=== PATIENT | female | born 1940 | race Caucasian/White ===

== ENCOUNTER → 2017-07-28 11:43 | Outpatient (CLI) | payer MEDICARE, OTHER, SELFPAY ==
--- NOTE | 2017-07-28 11:46 | BI_ITS ---
MAMMOGRAPHY - BILATERAL SCREENING REASON FOR EXAM: Female, 76 years old. Routine annual screening examination. PERTINENT HISTORY: Non-contributory. TECHNIQUE: Digital bilateral breast juan (3D mammographic acquisition) in the CC and MLO projections. 2-D mediolateral oblique (MLO) and craniocaudad (CC) views of both breasts were obtained. CAD: Full Field Digital Mammography with Computer Added Detection was performed. COMPARISON: Comparison is made with prior study dated July 01, 2016 and June 25, 2015. FINDINGS: Breast Composition: The breasts are heterogeneously dense, which may obscure small masses. There are no dominant masses or suspicious calcifications. No other significant abnormalities are identified. There has been no significant change since the prior study. BI/SCREENING MAMM (CAD), BILAT IMPRESSION: Stable bilateral screening mammogram. Yearly follow-up mammogram recommended. (A) ASSESSMENT CATEGORY: BIRADS Category 1: Negative. A letter regarding these results will be sent to the patient by the facility within 30 days. Approximately 10% of breast cancers are not detected by mammography. A normal mammogram should not delay biopsy of a clinically suspicious abnormality. [id number] Electronically Signed: Senthil Wu MD at 14:17 EDT Tel [phone], Service support ,
== END ==
PROVIDERS: Family Provider Student in an Organized Health Care Education/Training Program; PCP Student in an Organized Health Care Education/Training Program; Visit Provider Student in an Organized Health Care Education/Training Program
DX: Z12.31 Encounter for screening mammogram for malignant neoplasm of breast (principal)
CPT/HCPCS: 77063; 77067

== ENCOUNTER → 2018-07-30 12:11 | Outpatient (CLI) | payer MEDICARE, OTHER, SELFPAY ==
--- NOTE | 2018-07-30 12:20 | BI_ITS ---
MAMMOGRAPHY - BILATERAL SCREENING REASON FOR EXAM: Female, 77 years old. Routine annual screening examination. PERTINENT HISTORY: Non-contributory. TECHNIQUE: Digital bilateral breast juan (3D mammographic acquisition) in the CC and MLO projections. 2-D mediolateral oblique (MLO) and craniocaudad (CC) views of both breasts were obtained. CAD: Full Field Digital Mammography with Computer Added Detection was performed. COMPARISON: Comparison is made with prior study dated July 28, 2017 and July 01, 2016. FINDINGS: Breast Composition: The breasts are extremely dense, which lowers the sensitivity of mammography. There are no dominant masses or suspicious calcifications. No other significant abnormalities are identified. There has been no significant change since the prior study. BI/SCREENING MAMM (CAD), BILAT IMPRESSION: Stable bilateral screening mammogram. Yearly follow-up mammogram recommended. (A) ASSESSMENT CATEGORY: BIRADS Category 1: Negative. A letter regarding these results will be sent to the patient by the facility within 30 days. Approximately 10% of breast cancers are not detected by mammography. A normal mammogram should not delay biopsy of a clinically suspicious abnormality. [id number] Electronically Signed: Senthil Wu, at 15:21 EDT , Service support ,
== END ==
PROVIDERS: Family Provider Student in an Organized Health Care Education/Training Program; PCP Student in an Organized Health Care Education/Training Program; Referring Provider Obstetrics & Gynecology; Visit Provider Obstetrics & Gynecology
DX: Z12.31 Encounter for screening mammogram for malignant neoplasm of breast (principal)
CPT/HCPCS: 77063; 77067

== ENCOUNTER → 2020-10-09 12:06 | Outpatient (CLI) | payer MEDICARE, OTHER, SELFPAY ==
--- NOTE | 2020-10-09 12:08 | BI_ITS ---
MAMMOGRAPHY - BILATERAL SCREENING 3-D TOMOSYNTHESIS REASON FOR EXAM: Female, 79 years old. SCREENING PERTINENT HISTORY: No significant family history. TECHNIQUE: 2-D mammograms and 3-D Tomosynthesis of the breast (s) were performed. CAD was performed. COMPARISON: 07/30/2018 FINDINGS: The breast composition is extremely dense fibroglandular tissue that may lower the sensitivity of the mammography There is 1.4 cm spiculated suspected lesion seen in the upper aspect of the right breast on the mediolateral oblique view not identified well on the CC view for which ultrasound is indicated. This is not seen in the previous study. Otherwise: no suspicious microcalcifications are identified. No architectural distortion is identified. There is no skin thickening or nipple retraction. Small lymph nodes noted in the right axilla. BI/SCRN MAMM (CAD)W/BUTCH BILAT IMPRESSION: Questionable small spiculated lesion seen in the right breast in the mediolateral oblique as mentioned above for ultrasound evaluation. BIRADS-0. FOLLOW UP RECOMMENDATION: Yearly follow up mammogram recommended. (A) Approximately 10% of breast cancers are not detected by mammography. A normal mammogram should not delay biopsy of a clinically suspicious abnormality. Electronically Signed: Alvarez Arguelles, at 14:29 EDT Tel , Service support ,
== END ==
PROVIDERS: PCP Student in an Organized Health Care Education/Training Program; Referring Provider Student in an Organized Health Care Education/Training Program; Visit Provider Student in an Organized Health Care Education/Training Program
DX: Z12.31 Encounter for screening mammogram for malignant neoplasm of breast (principal)
CPT/HCPCS: 77063; 77067

== ENCOUNTER → 2020-10-13 09:08 | Outpatient (CLI) | payer MEDICARE, OTHER, SELFPAY ==
--- NOTE | 2020-10-13 09:10 | US_ITS ---
STUDY: ULTRASOUND BREAST - RIGHT REASON FOR EXAM: Female, 79 years old. Abnormal mammogram. TECHNIQUE: Axial and longitudinal images of the RIGHT breast were performed with a high resolution ultrasound transducer. # OF IMAGES: 69 COMPARISON: Comparison is made with prior mammogram dated 10/09/2020. FINDINGS: RIGHT Breast: The upper half of the right breast was examined by ultrasound. No sonographic abnormality is seen. Additional mammographic views will be obtained. US/Breast Limited Unilateral IMPRESSION: Unremarkable sonographic examination of the upper half of the right breast as described. Additional mammographic views will be obtained. ASSESSMENT CATEGORY: BIRADS Category 0: Incomplete. Need additional imaging evaluation. A letter regarding these results will be sent to the patient by the facility within 30 days. Electronically Signed: Senthil Wu MD at 13:42 EDT , Service support ,
--- NOTE | 2020-10-13 10:02 | BI_ITS ---
MAMMOGRAPHY - UNILATERAL DIAGNOSTIC: RIGHT BREAST REASON FOR EXAM: Female, 79 years old. Abnormal screening mammogram. PERTINENT HISTORY: Non-contributory. TECHNIQUE: 90 degree lateral view of the right breast was obtained. CAD: Full Field Digital Mammography with Computer Added Detection was performed. COMPARISON: Comparison is made with prior mammogram dated 10/09/2020. FINDINGS: Breast Composition: The breasts are extremely dense, which lowers the sensitivity of mammography. There are no dominant masses or suspicious calcifications. No other significant abnormalities are identified. BI/DIAG MAMM W/CAD, UNILAT IMPRESSION: No abnormalities seen on this examination. One year follow-up mammogram recommended. (A) ASSESSMENT CATEGORY: BIRADS Category 1: Negative. A letter regarding these results will be sent to the patient by the facility within 30 days. Approximately 10% of breast cancers are not detected by mammography. A normal mammogram should not delay biopsy of a clinically suspicious abnormality. Electronically Signed: Senthil Wu MD at 12:52 EDT , Service support ,
== END ==
PROVIDERS: PCP Student in an Organized Health Care Education/Training Program; Referring Provider Student in an Organized Health Care Education/Training Program; Visit Provider Student in an Organized Health Care Education/Training Program
DX: R92.8 Other abnormal and inconclusive findings on diagnostic imaging of breast (principal)
CPT/HCPCS: 76642; 77065

== ENCOUNTER → 2021-10-22 | Outpatient (CLI) | payer MEDICARE, OTHER, SELFPAY ==
--- NOTE | 2021-10-22 10:11 | BI_ITS ---
MAMMOGRAPHY - BILATERAL SCREENING REASON FOR EXAM: Female, 80 years old. Routine annual screening examination. PERTINENT HISTORY: Non-contributory. TECHNIQUE: Digital bilateral breast butch (3D mammographic acquisition) in the CC and MLO projections. 2-D mediolateral oblique (MLO) and craniocaudad (CC) views of both breasts were obtained. CAD: Full Field Digital Mammography with Computer Added Detection was performed. COMPARISON: Comparison is made with prior study dated 10/09/2020 and 07/30/2018. FINDINGS: Breast Composition: The breasts are extremely dense, which lowers the sensitivity of mammography. There are no dominant masses or suspicious calcifications. No other significant abnormalities are identified. There has been no significant change since the prior study. BI/SCRN MAMM (CAD)W/BUTCH BILAT IMPRESSION: Stable bilateral screening mammogram. Yearly follow-up mammogram recommended. (A) ASSESSMENT CATEGORY: BIRADS Category 1: Negative. A letter regarding these results will be sent to the patient by the facility within 30 days. Approximately 10% of breast cancers are not detected by mammography. A normal mammogram should not delay biopsy of a clinically suspicious abnormality. [id number] Electronically Signed: Senthil Wu MD at 11:57 EDT ,
== END | disposition home or self-care (01) ==
LOC: OPBI 10:05
PROVIDERS: PCP Student in an Organized Health Care Education/Training Program; Referring Provider Nurse Practitioner Family; Visit Provider Nurse Practitioner Family
DX: Z12.31 Encounter for screening mammogram for malignant neoplasm of breast (principal)
CPT/HCPCS: 77063; 77067

== ENCOUNTER 2022-02-25 13:55 | Emergency (ER) | payer MEDICARE, OTHER, SELFPAY ==
[2022-02-25 13:56] VITALS: BP 139/69; PULSE 106; RESP 18; TEMP 37.4; O2SAT 98; BMI 23.3
--- NOTE | 2022-02-25 14:07 | ED.RN ---
PT WITH ABRASION TO LEFT SHOULDER,AND LEFT HAND FROM FALL ON MONDAY. BRUISING TO LEFT MID BACK.
[2022-02-25 14:10] VITALS: BP 139/69; PULSE 106; RESP 18; TEMP 37.4; O2SAT 98
--- NOTE | 2022-02-25 14:37 | EKG12_ITS ---
Test Reason : WEAKNESS Blood Pressure : / mmHG Vent. Rate : 094 BPM Atrial Rate : 094 BPM P-R Int : 140 ms QRS Dur : 084 ms QT Int : 340 ms P-R-T Axes : 041 004 046 degrees QTc Int : 425 ms Normal sinus rhythm Normal ECG Confirmed by JEREMIAH OROZCO, MILDRED ([id number]), editor in chief WILLIAM TRISTAN ([id number]) on 03/01/2022 11:32:02 AM Referred By: Confirmed By:MILDRED DANIELS MD
--- NOTE | 2022-02-25 14:38 | EDS_ITS ---
HPI History of Present Illness Chief Complaint: Weakness Informant: patient and family Narrative Narrative: Patient brought by EMS from home. Son and [id number] are present. Son takes care of her daily. She lives alone. Ambulates with a walker at baseline. Reports yesterday 9 PM put her to bed she was normal there is no illnesses and patient was normal. She came by 8:30 in the morning patient was standing in the room without her walker that was abnormal. She was slow to respond and walking slower than normal. He was able to get her prepped and ready for breakfast after eating breakfast she would not stand up for him. She denies cough or headache. Denies any pain. Reports increasing urine frequency. Per son history of multiple UTIs in the past. Denies fever or chills. Patient is COVID vaccinated. [facility] Medical History UTI (urinary tract infection) Home Medications cephalexin 500 mg capsule 500 mg PO Q12 #10 caps 02/25/22 [Rx Last Taken Unknown] hydrochlorothiazide 12.5 mg tablet 12.5 mg PO DAILY blood pressure 02/25/22 [History Last Taken 02/25/22] multivitamin 1 tab PO DAILY health maintenance 02/25/22 [History Last Taken 02/25/22] Allergy/AdvReac Type Severity Reaction Status Date / Time No Known Allergies Allergy Verified 02/25/22 13:56 Social History Smoking Status: Never smoker ROS ROS ED Constitutional Constitutional ED: Denies chills, fever(s) or sweats Eyes Eyes: Denies change in vision ENT ENT ED: Denies dysphagia or sore throat Cardiovascular Cardiovascular: Denies chest pain, leg edema, palpitations or racing heartbeat Respiratory/Chest Respiratory/Chest: Denies cough, dyspnea or dyspnea on exertion Gastrointestinal Gastrointestinal: Denies abdominal pain, diarrhea, nausea or vomiting Genitourinary Genitourinary ED: Reports urinary frequency; Denies dysuria or hematuria Musculoskeletal Musculoskeletal: Denies back pain, extremity pain or neck pain Integumentary Denies rash or wounds Neurologic Neurologic: Reports weakness; Denies headache(s) or paresthesias EXAM Physical Exam Const Vital Signs: 02/25/22 13:56 02/25/22 14:01 02/25/22 14:10 Temperature 99.4 F H 99.4 F H Temperature Source Temporal Temporal Pulse Rate 106 H 106 H Respiratory Rate 18 18 Respiratory Effort Normal Non-Labored Respiratory Pattern Normal Blood Pressure 139/69 H 139/69 H Blood Pressure Mean 92 92 Pulse Ox 98 98 Oxygen Delivery Method Room Air Room Air 02/25/22 14:56 02/25/22 17:00 02/25/22 19:02 Temperature 98.5 F Temperature Source Oral Pulse Rate 97 74 74 Respiratory Rate 14 16 Respiratory Effort Respiratory Pattern Blood Pressure 124/60 H 103/56 L 107/53 L Blood Pressure Mean 81 71 Pulse Ox 97 96 97 Oxygen Delivery Method Room Air Room Air 02/25/22 19:02 Temperature Temperature Source Pulse Rate Respiratory Rate Respiratory Effort Respiratory Pattern Blood Pressure Blood Pressure Mean Pulse Ox 97 Oxygen Delivery Method Room Air Positive well nourished and well developed General Appearance ED: well developed and NAD HEENT Reports moist mucous membranes normocephalic and atraumatic Eyes PERRL, EOMs intact bilaterally and conjunctivae normal General Eye ED: Yes normal appearance of both eyes Neck no lymphadenopathy and supple General: Negative for tenderness Chest Wall Chest: Negative for tenderness Resp normal respiratory effort and normal air movement Effort and Inspection: symmetric chest movement; Negative for respiratory distress Cardio regular rate, regular rhythm and no murmurs Peripheral Pulses: pulses 2+ throughout GI normal to inspection, nondistended, normoactive bowel sounds and non-tender Palpation: Negative for guarding or rebound tenderness present Back/Spine no CVA tenderness and no thoracic nor lumbar tenderness Extremity normal to inspection General Extremety ED: Negative for edema or tenderness General Extremity: Negative for edema Neuro oriented x3, CN's II-XII intact bilaterally and no sensory deficits noted Neuro Narrative: Lower extremity weakness bilaterally hip flexors. NIH of 0. Sensorium / Orientation: awake and alert Skin no rashes or lesions noted and no wounds MDM MDM MDM Narrative Medical decision making narrative: Patient NIH of 0 there is some weakness in the lower extremities. She has no back pain. Symptoms appear to be stroke like symptoms with negative evaluation. She has urine frequency. I did check labs which are stable urine had 25 leukocytes no other findings she does have urine frequency I sent for culture. COVID testing negative with her elevated temperature. She is given IV fluids improvement of heart rate. Attempted to ambulate the patient and per nursing could not stand on her own bedside. Obtain a CT head which returned negative. She has no cough symptoms. Discussed with patient and son for possible admission for rehab however states currently does have enough help at home to help her get around. Case management did see patient and give additional resources for outpatient. She was given IV Rocephin for UTI with a short prescription. Return precautions discussed. All questions were answered. Lab Data Attestation: I reviewed the patient's lab results. Labs: Laboratory Results - last 24 hr 02/25/22 02/25/22 02/25/22 14:40 14:40 14:40 WBC 8.6 RBC 4.88 Hgb 14.2 Hct 43.1 MCV 88.3 MCH 29.1 MCHC 32.9 RDW Std Deviation 43.2 RDW Coeff of Haim 13.2 Plt Count 264 MPV 10.7 Immature Gran % (Auto) 0.400 Neut % (Auto) 78.4 H Lymph % (Auto) 11.7 L [place] % (Auto) 9.3 Eos % (Auto) 0.1 Baso % (Auto) 0.1 Absolute Neuts (auto) 6.7 Absolute Lymphs (auto) 1.00 Nucleated RBC % 0 Sodium 135 L Potassium 3.8 Chloride 102 Carbon Dioxide 25.0 Anion Gap 8 BUN 32 H Creatinine 0.94 Estim Creat Clear Calc 39.49 Est GFR (MDRD) Af Amer 74 Est GFR (MDRD) Non-Af 61 BUN/Creatinine Ratio 34.2 H Glucose 171 H Calcium 9.5 Total Bilirubin 1.20 H AST 25 ALT 33 Alkaline Phosphatase 73 Total Protein 7.4 Albumin 3.6 Globulin 3.8 Albumin/Globulin Ratio 0.9 Urine Color Yellow Urine Clarity Clear Urine pH 5.0 Ur Specific [place] 1.020 Urine Protein Negative Urine Glucose (UA) Normal Urine Ketones Negative Urine Occult Blood 25 H Urine Nitrite Negative Urine Bilirubin Negative Urine Urobilinogen Normal Ur Leukocyte Esterase 25 H Urine RBC 0 SEEN Urine WBC 0 SEEN Ur Squamous Epith Cells 0 SEEN Urine Bacteria 0 SEEN Urine Mucus 0 SEEN Radiography Diagnostic Testing: Clinical Impression(s) from Imaging Studies Brain CT 02/25/22 17:02 IMPRESSION: Chronic involutional changes of the brain. Electronically Signed: Grabiel Lloyd MD at 18:26 EST , EKG Initial EKG: Attestation: I personally reviewed and interpreted this EKG as follows: Comments: Sinus rate of 94, no ST or T wave changes. Discharge Plan Triage Chief Complaint: Weakness ED Provider: Orlando Ball Dx/Rx/DC Orders Clinical Impression: Acute UTI, Urine frequency, Weakness Instructions: Urinary Tract Infections in Women, ED Weakness (Uncertain Cause) Prescriptions: New cephalexin [cephalexin] 500 mg capsule 500 mg PO Q12 Qty: 10 0RF No Action multivitamin Tablet 1 tab PO DAILY hydrochlorothiazide 12.5 mg tablet 12.5 mg PO DAILY Label Comments: TAKE 1 TABLET BY MOUTH EVERY DAY Primary Care Provider: Davey Hansen Referrals: Davey Hansen, [Primary Care Provider] - 3-5 Days if not improving Activity Restrictions/Additional Instructions: CT brain negative. Urine mild UTI with urine frequency symptoms. Culture sent. Take antibiotic as prescribed. Follow-up with your doctor. Return if any worsening symptoms. Disposition Disposition: Home, Self Care Discharge Date/Time: 02/25/22 19:27
[2022-02-25 14:56] VITALS: BP 124/60; PULSE 97; RESP 14; TEMP 36.9; O2SAT 97
[2022-02-25 15:02] LABS: Bacteria 0 SEEN /hpf (None Seen); Mucous, Urine 0 SEEN /hpf (<or=2+); Red Blood Cells-Urine 0 SEEN /hpf (0-5); Squamous Epithelial Cells - UA 0 SEEN /hpf (5-10); White Blood Cells 0 SEEN /hpf (0-5)
[2022-02-25 15:06] LABS: Absolute Neutrophil Count 6.7 X10^3/uL (2.0-7.7); Basophil# 0.01 X10^3/uL; Basophil% 0.1 % (0-1); Color, Urine Yellow (Yellow); Eosinophil# 0.01 X10^3/uL; Eosinophils% 0.1 % (0-5); Glucose, Dipstick Normal (Normal); Hematocrit 43.1 % (37-47); Hemoglobin 14.2 g/dL (12.0-15.0); Ketone-Dipstick Negative (Negative); Leukocyte Esterase-Dipstick 25 /ul (Negative); Lymphocyte % 11.7 % (19-41); Mean Corp Hgb Conc 32.9 g/dL (32-36); Mean Corpuscular Hgb 29.1 pg (27.0-32.0); Mean Corpuscular Volume 88.3 fL (81-99); Mean Platelet Vol. 10.7 fl (6.2-12.0); Monocyte% 9.3 % (0-10); NRBC Flagged by Analyzer 0 % (0-5); Neutrophil # 6.72 X10^3/uL (2.7-7.7); Neutrophil % 78.4 % (47-70); Nitrite-Dipstick Negative (Negative); Occult Blood-Urine 25 /ul (Negative); Platelet Count 264 K/mm3 (150-450); Protein-Dipstick Negative (Negative); RBC Distribution Width CV 13.2 % (11.6-14.6); RBC Distribution Width SD 43.2 fl (35.1-43.9); Red Blood Count 4.88 M/mm3 (4.2-5.4); Urine Bilirubin Dipstick Negative (Negative); Urine Clarity Clear (Clear); Urine Urobilinogen Normal (Normal); White Blood Count 8.6 K/mm3 (4.4-11.0)
[2022-02-25] MEDS: Acetaminophen 500 MG Tablet PO (15:06)
[2022-02-25 15:24] LABS: ALB/GLOB Ratio 0.9 RATIO (0.9-2.4); AST(SGOT) 25 U/L (15-37); Alanine Aminotransfer ALT/SGPT 33 U/L (13-56); Albumin, Serum 3.6 g/dL (3.2-5.0); Alkaline Phosphatase 73 U/L (45-117); Anion Gap 8 (5-15); BUN 32 mg/dL (7-18); BUN/Creat Ratio 34.2 RATIO (10-20); Calcium,Total 9.5 mg/dL (8.5-10.1); Chloride 102 mmol/L (98-107); Creatinine, Serum 0.94 mg/dL (0.55-1.02); EST Glomerular Filtration Rate 61 mL/min (>60); Est Glom Filt Rate - Afr Amer 74 mL/min (>60); Estimated Creatinine Clearance 39.49 ml/min; Globulin 3.8 g/dL (2.2-4.2); Glucose 171 mg/dL (74-106); Potassium 3.8 mmol/L (3.5-5.1); Protein, Total 7.4 g/dL (6.4-8.2); Sodium Level 135 mmol/L (136-145)
[2022-02-25 17:00] VITALS: BP 103/56; PULSE 74; RESP 16; O2SAT 96
--- NOTE | 2022-02-25 17:02 | CT_ITS ---
STUDY: CT BRAIN WITHOUT CONTRAST REASON FOR EXAM: Female, 81 years old. weakness RADIATION DOSAGE (If Supplied By Facility): CTDIvol = ( 44.99 ) mGy, DLP = ( 779.24 ) mGycm TECHNIQUE: Transaxial CT imaging of the brain was performed without administration of intravenous contrast material. Individualized dose optimization techniques were used for this CT. COMPARISON: No relevant priors. FINDINGS: Normal soft tissue structures. Normal calvarium. There is moderate cerebral atrophy with widening of the extra-axial spaces and ventricular dilatation. There are areas of decreased attenuation within the white matter tracts of the supratentorial brain, consistent with microvascular disease changes. 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 Normal brainstem. Normal cerebellum. There is no intracranial hemorrhage. There are no findings of an acute ischemic infarction. Normal visualized paranasal sinuses. CT/Brain/Head without Contrast IMPRESSION: Chronic involutional changes of the brain. Electronically Signed: Grabiel Lloyd MD at 18:26 EST ,
--- NOTE | 2022-02-25 17:47 | ED.RN ---
pt needing much cueing in even getting to sitting position and max assist x2 to get to stand. pt leans forward over walker. denies pain. son unsure how can manage at home. dr. judd aware.
[2022-02-25] MEDS: Ceftriaxone 1 GM/50 ML BAG IV (18:00)
--- NOTE | 2022-02-25 18:26 | CM.ED ---
SW Note SW met with patient's family. Provided them with [facility] information. SW advised that if patient needs home health while at home to contact the PCP. Family verbalized understanding. Family advised that they were going to see what the CT scan said prior to making decision regarding patient and her level of need. SW remains available. Magdalena AVILES
[2022-02-25 19:02] VITALS: BP 107/53; PULSE 74; O2SAT 97
== END 2022-02-25 19:27 | disposition home or self-care (01) ==
PROVIDERS: Emergency Provider Emergency Medicine; PCP Student in an Organized Health Care Education/Training Program; Visit Provider Emergency Medicine
DX: N39.0 Urinary tract infection, site not specified (principal); R35.0 Frequency of micturition; Z20.822 Contact with and (suspected) exposure to COVID-19
CPT/HCPCS: 70450; 80053; 81001; 85025; 87086; 87811; 93005; 96361; 96365; 99285; J7040; J7050; A4216

== ENCOUNTER 2023-01-16 13:14 | Emergency (ER) | payer MEDICARE, OTHER, SELFPAY ==
[2023-01-16 13:15] VITALS: BP 134/74; PULSE 91; RESP 16; TEMP 36.1; O2SAT 96
[2023-01-16 14:39] LABS: Absolute Lymphocyte Count 2.26 X10^3/uL (0.83-4.51); Absolute Neutrophil Count 8.4 X10^3/uL (2.0-7.7); Basophil# 0.02 X10^3/uL; Basophil% 0.2 % (0-1); Eosinophil# 0.07 X10^3/uL; Eosinophils% 0.6 % (0-5); Hematocrit 38.8 % (37-47); Hemoglobin 13.2 g/dL (12.0-15.0); Lymphocyte # 2.26 X10^3/ul (0.83-4.51); Lymphocyte % 18.7 % (19-41); Mean Corpuscular Hgb 29.4 pg (27.0-32.0); Mean Corpuscular Volume 86.4 fL (81-99); Mean Platelet Vol. 10.1 fl (6.2-12.0); Monocyte# 1.33 X10^3/uL; NRBC Flagged by Analyzer 0 % (0-5); Neutrophil # 8.35 X10^3/uL (2.7-7.7); Neutrophil % 69.3 % (47-70); Platelet Count 266 K/mm3 (150-450); RBC Distribution Width CV 12.9 % (11.6-14.6); RBC Distribution Width SD 40.4 fl (35.1-43.9); Red Blood Count 4.49 M/mm3 (4.2-5.4); White Blood Count 12.1 K/mm3 (4.4-11.0)
[2023-01-16 14:55] LABS: ALB/GLOB Ratio 0.8 RATIO (0.9-2.4); AST(SGOT) 32 U/L (15-37); Alanine Aminotransfer ALT/SGPT 30 U/L (13-56); Albumin, Serum 3.4 g/dL (3.2-5.0); Alkaline Phosphatase 79 U/L (45-117); Anion Gap 6 (5-15); BUN 12 mg/dL (7-18); BUN/Creat Ratio 17.5 RATIO (10-20); Calcium,Total 9.1 mg/dL (8.5-10.1); Chloride 102 mmol/L (98-107); Creatinine, Serum 0.69 mg/dL (0.55-1.02); EST Glomerular Filtration Rate 87 mL/min (>60); Est Glom Filt Rate - Afr Amer 106 mL/min (>60); Globulin 4.3 g/dL (2.2-4.2); Glucose 127 mg/dL (74-106); Potassium 3.8 mmol/L (3.5-5.1); Protein, Total 7.7 g/dL (6.4-8.2); Sodium Level 133 mmol/L (136-145)
--- NOTE | 2023-01-16 15:44 | EDS_ITS ---
HPI HPI - Female History of Present Illness Chief Complaint: Complaint Detail of Chief Complaint: Recent UTI. On antibiotics last several days. Informant: patient and family Associated Symptoms Associated Symptoms: Positive for Hematuria Narrative Narrative: 82-year-old female frequent UTIs. She has been off and on antibiotics for last 1 to 2 months. Was diagnosed with a UTI on Monday and started on Keflex. She has had episodes of confusion generalized weakness at home on Monday and today and doctor's office and wanted her brought into the emergency department. She has had no vomiting or diarrhea. No fever. Prior similar symptoms: Yes Recent Illness/Hospitalization: No PFSH PFS Medical History UTI (urinary tract infection) Home Medications cephalexin 500 mg capsule 500 mg PO Q12 #10 caps 02/25/22 [Rx Last Taken Unknown] hydrochlorothiazide 12.5 mg tablet 12.5 mg PO DAILY blood pressure 02/25/22 [History Last Taken 02/25/22] multivitamin 1 tab PO DAILY health maintenance 02/25/22 [History Last Taken 02/25/22] Allergy/AdvReac Type Severity Reaction Status Date / Time No Known Allergies Allergy Verified 01/16/23 13:14 Social History Smoking Status: Never smoker ROS ROS ED ROS Narrative Weakness. Review of Systems ROS Unobtainable: Denies due to encephalopathy Constitutional Constitutional ED: Denies chills or fever(s) Eyes Eyes: Denies blurry vision ENT ENT ED: Denies ear pain Cardiovascular Cardiovascular: Denies chest pain Respiratory/Chest Respiratory/Chest: Denies cough or dyspnea Gastrointestinal Gastrointestinal: Denies abdominal pain, constipation, diarrhea, melena, nausea or vomiting Genitourinary Genitourinary ED: Reports hematuria; Denies dysuria Musculoskeletal Musculoskeletal: Denies arthralgias Integumentary Denies abscess or Abrasions Neurologic Neurologic: Denies headache(s) Psychiatric Psychiatric: Denies anxiety Endocrine Endocrinology: Denies heat intolerance Hematologic/Lymphatic Hematologic/Lymphatic: Denies easy bleeding or easy bruising Allergic/Immunologic Allergic/Immunologic ED: Denies mouth swelling or tongue swelling EXAM Physical Exam Narrative Exam Narrative: 82-year-old female no acute distress. Vital signs stable patient no distress. HEENT exam unremarkable. Neck nontender. Lungs clear to auscultation bilateral. Heart regular rhythm for a systolic ejection murmur. Chest wall nontender. Abdomen soft nontender. Moving all 4 extremities. Nontender. No deformity. No edema. Neurologically she is awake and alert. Answering questions and following commands. And afebrile. Family present in room. Const Vital Signs: 01/16/23 13:15 01/16/23 18:55 Temperature 96.9 F L Temperature Source Temporal Pulse Rate 91 Respiratory Rate 16 18 Blood Pressure 134/74 H Blood Pressure Mean 94 Pulse Ox 96 Oxygen Delivery Method Room Air Room Air Positive well nourished and well developed; Negative for obese, cachectic, contractures or unkempt General Appearance ED: well developed and NAD; Negative for unkempt, cachectic, contractures, odor of alcohol detected or pallor Nutritional Appearance: Negative for cachectic or obese HEENT Reports moist mucous membranes Negative for trauma or tenderness Eyes PERRL and EOMs intact bilaterally General Eye ED: Negative for pale conjunctiva, scleral icterus or other Neck no lymphadenopathy, supple and no JVD General: Negative for other Thyroid: Negative for tender Chest Wall inspection of chest normal and palpation of chest normal Chest: Negative for other Resp normal respiratory effort and clear to auscultation bilaterally Effort and Inspection: Negative for pain with movement Auscultation: Negative for rales, rhonchi or wheezes Cardio regular rate, regular rhythm, S1 normal heart sound and no JVD; Negative for no murmurs Rate: Negative for bradycardia or tachycardic GI normal to inspection, nondistended, normoactive bowel sounds, soft to palpation, non-tender, non-distended and no masses Auscultation: normoactive bowel sounds Palpation: Negative for tender, guarding or rigid Back/Spine no CVA tenderness General Back: Negative for CVA tenderness Cervical Spine: Negative for cervical spine tenderness Thoracic Spine / Upper Back: Negative for thoracic spinal tenderness Lumbar Spine / Lower Back: Negative for lumbar spinal tenderness Sacrum: Negative for other Extremity normal to inspection and full ROM General Extremety ED: Negative for edema or tenderness General Extremity: Negative for edema Neuro CN's II-XII intact bilaterally Sensorium / Orientation: alert, oriented to person and oriented to place; Negative for confused, lethargic or stuporous Motor Exam: strength 5/5 throughout Psych mental status grossly normal Appearance: Negative for unkempt Attitude: No agitated Speech: No other Mood & Affect: Negative for depressed, anxious or tearful Skin no rashes or lesions noted and no wounds General Skin Exam: Negative for jaundice or pallor Rashes: No rashes noted Trauma: Negative for other MDM MDM MDM Narrative Medical decision making narrative: 82-year-old female with generalized weakness concern is she has a UTI and it might be resistant to the your antibiotic she is on at home. Rule out sepsis or bacteremia. Repeat exam patient is doing well at 7:40 PM. We went over her test results. The labs do not look bad. She has a mildly elevated white count 12.1. The urinalysis is unremarkable I did send a culture she is currently on antibiotic. And her sodium is just below normal at 133. I spoke to her and her son at bedside he is comfortable taking her home. He does not feel she needs to be admitted and clinically I do not either nor do her labs show anything concerning that she needs to be admitted to the hospital. She will continue her current antibiotic which is Keflex. Fluids and rest. Follow-up with her primary care physician at the [facility] this week. Return if worse. History & Record Review Discussion w/independent historian: Patient and Family Additional record(s) reviewed:: Prior inpatient record, Prior outpatient record, Prior ED visit and Prior labs Lab Data Attestation: I reviewed the patient's lab results. Lab results narrative: CBC shows white count 12.1. H&H 13.2 and 38.8. Platelets 266. Electrolytes show sodium 133. Gap is 6. Normal BUN of 12 creatinine 0.69. Glucose 127. Liver labs are markable. Lactic acid is normal at 1.0. Liver enzymes are unremarkable. Urinalysis negative. No white cells. No nitrates. No bacteria. Labs: Laboratory Results - last 24 hr 01/16/23 01/16/23 14:30 15:52 WBC 12.1 H RBC 4.49 Hgb 13.2 Hct 38.8 MCV 86.4 MCH 29.4 MCHC 34.0 RDW Std Deviation 40.4 RDW Coeff of Haim 12.9 Plt Count 266 MPV 10.1 Immature Gran % (Auto) 0.200 Neut % (Auto) 69.3 Lymph % (Auto) 18.7 L [place] % (Auto) 11.0 H Eos % (Auto) 0.6 Baso % (Auto) 0.2 Absolute Neuts (auto) 8.4 H Absolute Lymphs (auto) 2.26 Nucleated RBC % 0 Sodium 133 L Potassium 3.8 Chloride 102 Carbon Dioxide 25.0 Anion Gap 6 BUN 12 Creatinine 0.69 Est GFR (MDRD) Af Amer 106 Est GFR (MDRD) Non-Af 87 BUN/Creatinine Ratio 17.5 Glucose 127 H Lactic Acid 1.0 Calcium 9.1 Total Bilirubin 1.90 H AST 32 ALT 30 Alkaline Phosphatase 79 Total Protein 7.7 Albumin 3.4 Globulin 4.3 H Albumin/Globulin Ratio 0.8 L Urine Color Yellow Urine Clarity Clear Urine pH 6.0 Ur Specific [place] 1.015 Urine Protein Negative Urine Glucose (UA) Normal Urine Ketones 15 H Urine Occult Blood Negative Urine Nitrite Negative Urine Bilirubin Negative Urine Urobilinogen Normal Ur Leukocyte Esterase 25 H Urine RBC 0 SEEN Urine WBC 0-5 SEEN Ur Squamous Epith Cells 0-5 SEEN Urine Bacteria 0 SEEN Urine Mucus 0 SEEN Radiography Chest X-Ray - ED: 1 View and Read by ED Physician Diagnostic Testing: Clinical Impression(s) from Imaging Studies Chest X-Ray 01/16/23 16:00 IMPRESSION: No acute pulmonary finding. Electronically Signed: Yrn Miller MD at 16:48 EDT , Discharge Plan Triage Chief Complaint: Complaint ED Provider: Miky Davidson Dx/Rx/DC Orders Prescriptions: No Action multivitamin Tablet 1 tab PO DAILY hydrochlorothiazide 12.5 mg tablet 12.5 mg PO DAILY Patient Comments: TAKE 1 TABLET BY MOUTH EVERY DAY cephalexin [cephalexin] 500 mg capsule 500 mg PO Q12 Qty: 10 0RF Primary Care Provider: Davey Hansen Referrals: Davey Hansen DO [Primary Care Provider] -
[2023-01-16 15:58] LABS: Bacteria 0 SEEN /hpf (None Seen); Mucous, Urine 0 SEEN /hpf (<or=2+); Red Blood Cells-Urine 0 SEEN /hpf (0-5)
--- NOTE | 2023-01-16 16:00 | RAD_ITS ---
INDICATION: weakness EXAMINATION/TECHNIQUE: X-RAY - XR Chest 1 View COMPARISON: No relevant prior comparison study available FINDINGS: LINES/DEVICES: None. LUNGS: The lungs are well expanded. No consolidation, edema or effusion. No pneumothorax. MEDIASTINUM AND CARDIOVASCULAR STRUCTURES: Cardiac silhouette not enlarged. Aortic calcifications. Central airways and mediastinal contour are unremarkable. BONES AND SOFT TISSUES: Unremarkable. RAD/Chest 1 View (Portable) IMPRESSION: No acute pulmonary finding. Electronically Signed: Yrn Miller MD at 16:48 EDT ,
[2023-01-16 16:23] LABS: Color, Urine Yellow (Yellow); Glucose, Dipstick Normal (Normal); Ketone-Dipstick 15 mg/dl (Negative); Protein-Dipstick Negative (Negative); Specific Gravity, Urine 1.015 (1.002-1.030); Urine Bilirubin Dipstick Negative (Negative); Urine Clarity Clear (Clear)
[2023-01-16 16:24] LABS: Leukocyte Esterase-Dipstick 25 /ul (Negative); Nitrite-Dipstick Negative (Negative); Occult Blood-Urine Negative /ul (Negative); Urine Urobilinogen Normal (Normal)
[2023-01-16 16:26] LABS: Squamous Epithelial Cells - UA 0-5 SEEN /hpf (5-10); White Blood Cells 0-5 SEEN /hpf (0-5)
[2023-01-16] MEDS: 0.9% Normal Saline (1000mL) 1,000 ML 999 ML IV (16:49)
[2023-01-16 18:55] VITALS: RESP 18
== END 2023-01-16 19:53 | disposition home or self-care (01) ==
PROVIDERS: Emergency Provider Emergency Medicine; PCP Student in an Organized Health Care Education/Training Program; Visit Provider Emergency Medicine
DX: R53.1 Weakness (principal); N39.0 Urinary tract infection, site not specified
CPT/HCPCS: 71045; 80053; 81001; 83605; 85025; 87040; 87086; 96360; 99284; J7030; P9612; A4216

== ENCOUNTER → 2024-03-01 | Outpatient (CLI) | payer MEDICARE, OTHER, SELFPAY ==
[2024-03-01 12:51] LABS: Color, Urine Yellow (Yellow); Glucose, Dipstick Normal (Normal); Ketone-Dipstick Negative (Negative); Leukocyte Esterase-Dipstick 500 /ul (Negative); Nitrite-Dipstick Negative (Negative); Occult Blood-Urine 10 /ul (Negative); Protein-Dipstick 30 mg/dl (Negative); Specific Gravity, Urine 1.025 (1.002-1.030); Urine Bilirubin Dipstick Negative (Negative); Urine Clarity Cloudy (Clear); Urine Urobilinogen Normal (Normal)
== END | disposition home or self-care (01) ==
LOC: LABSPEC 12:41
PROVIDERS: PCP Student in an Organized Health Care Education/Training Program; Referring Provider Nurse Practitioner Primary Care; Visit Provider Nurse Practitioner Primary Care
DX: R35.0 Frequency of micturition (principal); R41.0 Disorientation, unspecified
CPT/HCPCS: 81002; 87086; 87088